=== PATIENT | male | born 1960 | race Caucasian/White ===

== ENCOUNTER 2021-03-28 15:31 | Inpatient (IN) | payer MEDICARE, OTHER ==
[~2021-03-28] VITALS: Ht 185.4 cm; Wt 169.2 kg
[~2021-03-28 15:31] MED LIST: ABILIFY10 MG PO; ABILIFY5 MG PO; ALBUTEROL0.09 MG/A2 IH; ALLERGY10 MG PO; AMOXICILLIN500 MG PO; ANTIVERT/2525 MG PO; ATIVAN1 MG PO; AUGMENTIN 875 M1 TAB PO; BACTRIM DS 8001 TA1 PO; BACTROBAN2% TP; BENZTROPINE MESY1 MG PO; BIAXIN500 MG PO; BRIN10TA PO; CEPHALEXIN250 MG PO; CIPRODEX 0.3%-7.5 ML OT; CLARITIN10 MG PO; COGENTIN1 MG PO; COREG12.5 MG PO; COREG25 MG PO; COREG6.25 MG PO; DILTIAZEM 24HR120 MG PO; DOXYCYCLINE MO100 MG PO; Duoneb 3ML 3 MG/3 ML INH; EFFEXOR XR150 MG PO; EFFEXOR-XR150 MG PO; EFFEXOR75 MG PO; ELIQUIS5 M1 PO; ESIDREX,ORETIC,25 MG PO; ETODOLAC400 MG PO; FLEET ADULT ENEM1 EA PO; GABAPENTIN100 M2 PO; HYDR25T PO; HYDROCHLOROTHIA25 M1 PO; HYDROCHLOROTHIA25 MG PO; IMDUR120 MG PO; K-1010 MEQ PO; KLONOPIN2 MG PO; KLOR-CON M2020 MEQ PO; LAMICTAL25 MG PO; LASIX 40MG40 MG/4 ML IV; LASIX40 MG PO; LATU40TA PO; LEVAQUIN750 MG PO; LISINOPRIL5 MG PO; LODINE400 MG PO; LOMOTIL 0.025 M1 TAB PO; LORAZEPAM1 MG PO; MEDROL DOSEPAK4 MG PO; MIRTAZAPINE15 M2 PO; MOTRIN800 MG PO; MUCINEX DM 30/61 TAB PO; NASONEX0.05 MG/AC NAS; NASONEX0.05 MG/AC NS; NEURONTIN100 MG PO; NORCO 325 MG-51 TAB PO; NORVASC10 MG PO; PERPHENAZINE8 MG PO; PREDNICOT20 MG PO; PREDNISONE10 MG PO; PROAIR HFA0.09 MG/AC IH; PROVENTIL0.09 MG/A1 INH; PROVENTIL0.09 MG/AC IH; QUETIAPINE FUM100 M3 PO; QUETIAPINE FUM300 M1 PO; SEROQUEL300 MG PO; TRAMADOL HCL50 MG PO; TRAZADONE HYDR100 MG PO; TRAZODONE100 MG PO; ULTRAM50 MG PO; VENLAFAXINE HYD75 M3 PO; VIBRAMYCIN100 MG PO; VICODIN 5/500 505 MG PO; VICODIN1 TAB PO; VISTARIL50 MG PO; VITAMIN D50000 I3 PO; ZITHROMAX Z PA250 MG PO; ZYRTEC10 MG PO; [UNRECOGNIZED DRUG - REMARK]
[2021-03-28] MEDS ORDERED: ALLEGRA ALLERG180 M2 PO (15:51)
[2021-03-28] MEDS ORDERED: VISTARIL50 MG PO (15:53)
[2021-03-28] MEDS ORDERED: FLONASE ALLERG9.9 ML NAS (15:55)
[2021-03-28] MEDS ORDERED: LASIX40 MG PO (15:55)
[2021-03-28] MEDS ORDERED: PROBIOTIC1 EAC2 PO (15:57)
[2021-03-28] MEDS ORDERED: MELATONIN10 M4 PO (15:58)
[2021-03-28] MEDS ORDERED: GLUCOPHAGE500 M1 PO (15:59)
[2021-03-28] MEDS ORDERED: PRILOSEC20 M1 PO (16:24)
[2021-03-28] MEDS ORDERED: REMERON15 M2 PO (16:24)
[2021-03-28] MEDS ORDERED: ALDACTONE25 M1 PO (16:25)
[2021-03-28] MEDS ORDERED: SEROQUEL50 MG PO (16:25)
[2021-03-28] MEDS ORDERED: VITAMIN D3125 MC1 PO (16:27)
[2021-03-28] MEDS ORDERED: 'CLONIDINE0.1 MG PO (16:31)
[2021-03-28] MEDS ORDERED: DIGOX250 MCG PO (16:34)
[2021-03-28] MEDS ORDERED: DULCOLAX STOOL100 M1 PO (16:35)
[2021-03-28] MEDS ORDERED: ELIQUIS5 M1 PO (16:36)
[2021-03-28] MEDS ORDERED: MYLANTA MAXIMU355 M1 PO (16:41)
[2021-03-28] MEDS ORDERED: HYDROCODONE-AC1 EAC1 PO (16:42)
[2021-03-28] MEDS ORDERED: Motrin,Rufen800 MG PO (16:43)
[2021-03-28 19:25] VITALS: BP 136/74
[2021-03-28 20:00] VITALS: BP 136/74
[2021-03-29 01:42] LABS: BILIRUBIN Negative (Negative); BLOOD Negative (Negative); CLARITY Clear (Clear); COLOR Yellow (Yellow); GLUCOSE Negative (Negative); KETONE Negative (Negative); LEUKO ESTERASE Negative (Negative); NITRITE Negative (Negative); SPECIFIC GRAVITY <= 1.005 (1.001-1.030)
[2021-03-29 02:22] LABS: RBC 0-2 rbc/hpf (0-2); WBC 0-2 wbc/hpf (0-5)
[2021-03-29 06:24] LABS: BASO # 0.1 10*3/uL (0.0-0.1); BASO % 0.6 % (0.0-1.0); EOS # 0.3 10*3/uL (0.0-0.4); EOS % 2.5 % (1.0-4.0); LYMPH # 2.3 10*3/uL (1.3-4.4); LYMPH % 22.5 % (27.0-41.0); MEAN CELL VOLUME 89.6 fl (80.0-94.0); MEAN CORPUSCULAR HGB 28.7 pg (27.0-31.0); MEAN PLATELET VOLUME 10.2 fl (9.6-12.3); MONO # 0.6 10*3/uL (0.1-1.0); MONO % 5.8 % (3.0-9.0); NEUT % 67.7 % (47.0-73.0); PLATELET COUNT AUTOMATED 296 10*3/uL (130-400); RED BLOOD COUNT 5.02 10*6/uL (4.50-5.90); RED CELL DISTRI WIDTH 14.5 % (0-14.5); WHITE BLOOD COUNT 10.3 10*3/uL (4.8-10.8)
[2021-03-29 06:36] LABS: ALBUMIN 2.8 gm/dl (3.1-4.5); BUN 10 mg/dl (7-24); CHLORIDE 104 mmol/L (98-107); CHOLESTEROL 150 mg/dL (<200); CREATININE 0.65 mg/dL (0.70-1.30); LDL CHOLESTEROL 83 mg/dL (9-159); POTASSIUM 3.8 mmol/L (3.5-5.1); SGOT/AST 10 IU/L (3-35); SGPT/ALT 13 U/L (12-78); SODIUM 140 mmol/L (136-145); TOTAL PROTEIN 7.1 gm/dL (6.4-8.2); TRIGLYCERIDES 107 mg/dl (<150)
[2021-03-29 06:44] LABS: ALKALINE PHOSPHATASE 94 U/L (45-117)
[2021-03-29 07:26] VITALS: BP 127/74
[2021-03-29 19:49] VITALS: BP 137/62
[2021-03-30 07:47] VITALS: BP 128/76
[2021-03-30 20:00] VITALS: BP 138/64
[2021-03-31 07:28] VITALS: BP 120/73
[2021-03-31 20:00] VITALS: BP 142/67
[2021-04-01 07:39] VITALS: BP 130/78
[2021-04-01 20:00] VITALS: BP 124/80
[2021-04-02 07:43] VITALS: BP 134/84
[2021-04-02 20:00] VITALS: BP 128/56
[2021-04-03 07:44] VITALS: BP 141/76
[2021-04-03] MEDS ORDERED: ROZEREM8 MG PO (09:25)
[2021-04-03] MEDS ORDERED: LATU40TA PO (09:25)
== END 2021-04-03 15:44 | DRG 885 ==
LOC: 3N 15:31
PROVIDERS: ADMIT Psychiatry & Neurology Psychiatry; ATTEND Psychiatry & Neurology Psychiatry
DX: F25.0 Schizoaffective disorder, bipolar type (principal); I11.0 Hypertensive heart disease with heart failure; Z68.42 Body mass index [BMI] 45.0-49.9, adult; I50.9 Heart failure, unspecified; I48.91 Unspecified atrial fibrillation; Z20.822 Contact with and (suspected) exposure to COVID-19; J45.909 Unspecified asthma, uncomplicated; M19.90 Unspecified osteoarthritis, unspecified site; E11.69 Type 2 diabetes mellitus with other specified complication; J44.9 Chronic obstructive pulmonary disease, unspecified; I25.10 Atherosclerotic heart disease of native coronary artery without angina pectoris; Z86.79 Personal history of other diseases of the circulatory system; Z82.49 Family history of ischemic heart disease and other diseases of the circulatory system; Z88.8 Allergy status to other drugs, medicaments and biological substances

== ENCOUNTER 2021-11-07 10:00 | Inpatient (IN) | payer MEDICARE, OTHER ==
[~2021-11-07] VITALS: Ht 182.9 cm; Wt 158.8 kg
[~2021-11-07 10:00] MED LIST changes: +'CLONIDINE0.1 MG PO; +ALDACTONE25 M1 PO; +ALLEGRA ALLERG180 M2 PO; +ATIVAN2 MG/1 ML IM; +CARVEDILOL25 MG PO; +DEPAKOTE250 MG PO; +DIGOX250 MCG PO; +DULCOLAX STOOL100 M1 PO; +FLONASE ALLERG9.9 ML NAS; +GEODON20 MG/1 ML IM; +GLUCOPHAGE500 M1 PO; +HYDROCODONE-AC1 EAC1 PO; +LITHOBID300 M1 PO; +MELATONIN10 M2 PO; +MELATONIN10 M4 PO; +METRONIDAZOLE45 G1 T; +MYLANTA MAXIMU355 M1 PO; +Motrin,Rufen800 MG PO; +NYSTATIN1 EAC3 MC; +PRILOSEC20 M1 PO; +PROBIOTIC1 EAC2 PO; +REMERON15 M2 PO; +ROZEREM8 MG PO; +SEROQUEL50 MG PO; +TYLENOL325 M2 PO; +VENTOLIN 02.5 MG/3 M INH; +VITAMIN D3125 MC1 PO; +VITAMIN E180 M1 PO; +[UNRECOGNIZED DRUG - OTHER] PO
[2021-11-07 16:53] VITALS: BP 102/72
[2021-11-07 20:00] VITALS: BP 103/68
[2021-11-08 08:13] VITALS: BP 110/60
[2021-11-08 20:00] VITALS: BP 111/60
[2021-11-09 08:00] VITALS: BP 100/64
[2021-11-09 20:00] VITALS: BP 116/58
[2021-11-10 08:00] VITALS: BP 106/66
[2021-11-10 20:00] VITALS: BP 116/69
[2021-11-11 07:40] VITALS: BP 125/77
[2021-11-11 20:00] VITALS: BP 100/55
[2021-11-12 07:48] VITALS: BP 113/61
[2021-11-12 20:00] VITALS: BP 103/54
[2021-11-13 07:54] VITALS: BP 101/62
[2021-11-13 10:58] LABS: BASO # 0.1 10*3/uL (0.0-0.1); BASO % 0.7 % (0.0-1.0); EOS # 0.6 10*3/uL (0.0-0.4); EOS % 6.3 % (1.0-4.0); HEMATOCRIT 45.2 % (42.0-52.0); LYMPH # 2.6 10*3/uL (1.3-4.4); MEAN CORPUSCULAR HGB 29.6 pg (27.0-31.0); MEAN CORPUSCULAR HGB CONC 31.9 g/dl (33.0-37.0); MEAN PLATELET VOLUME 10.5 fl (9.6-12.3); MONO # 0.7 10*3/uL (0.1-1.0); MONO % 7.4 % (3.0-9.0); NEUT # 5.1 10*3/uL (2.3-7.9); NEUT % 56.4 % (47.0-73.0); PLATELET COUNT AUTOMATED 299 10*3/uL (130-400); RED BLOOD COUNT 4.86 10*6/uL (4.50-5.90); RED CELL DISTRI WIDTH 13.8 % (0-14.5); WHITE BLOOD COUNT 8.9 10*3/uL (4.8-10.8)
[2021-11-13 11:15] LABS: CHLORIDE 103 mmol/L (98-107); POTASSIUM 3.8 mmol/L (3.5-5.1); SODIUM 137 mmol/L (136-145)
[2021-11-13 11:49] LABS: ALBUMIN 2.8 gm/dl (3.1-4.5); ALKALINE PHOSPHATASE 94 U/L (45-117); BUN 8 mg/dl (7-24); CREATININE 0.95 mg/dL (0.70-1.30); SGOT/AST 18 IU/L (3-35); SGPT/ALT 22 U/L (12-78); TOTAL PROTEIN 7.3 gm/dL (6.4-8.2)
[2021-11-13 20:00] VITALS: BP 116/58
[2021-11-14 08:12] VITALS: BP 107/59
[2021-11-14] MEDS ORDERED: ARIPIPRAZOLE15 MG PO (08:55)
[2021-11-14] MEDS ORDERED: VITAMIN D3125 MC1 PO (08:55)
[2021-11-14] MEDS ORDERED: LITHIUM CARBON450 M1 PO (08:55)
[2021-11-14] MEDS ORDERED: BENZTROPINE ME0.5 MG PO (08:55)
[2021-11-14] MEDS ORDERED: MELATONIN5 M7 PO (08:55)
[2021-11-14 20:00] VITALS: BP 96/57
[2021-11-15 08:00] VITALS: BP 110/75
[2021-11-15 20:00] VITALS: BP 104/54
[2021-11-16 08:00] VITALS: BP 103/56
[2021-11-16 20:00] VITALS: BP 101/48
[2021-11-17 08:00] VITALS: BP 113/60
[2021-11-17] MEDS ORDERED: LITHOBID300 M1 PO (15:56)
== END 2021-11-17 17:25 | DRG 885 ==
LOC: 3N 10:00
PROVIDERS: Counselor Professional; ADMIT Psychiatry & Neurology Psychiatry; ATTEND Psychiatry & Neurology Psychiatry
DX: F25.0 Schizoaffective disorder, bipolar type (principal); I11.0 Hypertensive heart disease with heart failure; E44.1 Mild protein-calorie malnutrition; Z68.42 Body mass index [BMI] 45.0-49.9, adult; E87.6 Hypokalemia; I48.91 Unspecified atrial fibrillation; R73.9 Hyperglycemia, unspecified; F32.A Depression, unspecified; I50.9 Heart failure, unspecified; F41.9 Anxiety disorder, unspecified; J45.909 Unspecified asthma, uncomplicated; J44.9 Chronic obstructive pulmonary disease, unspecified; I25.10 Atherosclerotic heart disease of native coronary artery without angina pectoris

== ENCOUNTER 2023-06-02 15:26 | Emergency (ER) | payer MEDICARE, OTHER ==
[~2023-06-02 15:26] MED LIST changes: +ARIPIPRAZOLE15 MG PO; +BENZTROPINE ME0.5 MG PO; +LITHIUM CARBON450 M1 PO; +MELATONIN5 M7 PO
[2023-06-02 16:01] LABS: BASO # 0.1 10*3/uL (0.0-0.1); BASO % 0.6 % (0.0-1.0); EOS # 0.2 10*3/uL (0.0-0.4); EOS % 1.5 % (1.0-4.0); HEMATOCRIT 43.2 % (42.0-52.0); LYMPH # 2.5 10*3/uL (1.3-4.4); MEAN CELL VOLUME 86.6 fl (80.0-94.0); MEAN CORPUSCULAR HGB 27.7 pg (27.0-31.0); MEAN CORPUSCULAR HGB CONC 31.9 g/dl (33.0-37.0); MEAN PLATELET VOLUME 9.7 fl (9.6-12.3); MONO # 0.8 10*3/uL (0.1-1.0); NEUT # 10.1 10*3/uL (2.3-7.9); NEUT % 73.2 % (47.0-73.0); PLATELET COUNT AUTOMATED 258 10*3/uL (130-400); RED BLOOD COUNT 4.99 10*6/uL (4.50-5.90); RED CELL DISTRI WIDTH 14.5 % (0-14.5); WHITE BLOOD COUNT 13.8 10*3/uL (4.8-10.8)
[2023-06-02 16:16] LABS: BILIRUBIN Negative (Negative); BLOOD Negative (Negative); CLARITY Clear (Clear); COLOR Yellow (Yellow); GLUCOSE Negative (Negative); KETONE Negative (Negative); LEUKO ESTERASE Negative (Negative); NITRITE Negative (Negative); SPECIFIC GRAVITY <= 1.005 (1.001-1.030); UROBILINOGEN 0.2 E.U./dl (0.0-1.0)
[2023-06-02 16:25] LABS: URINE AMPHETAMINES Negative (1000ng/ml); URINE BARBITURATES Negative (200ng/ml); URINE BENZODIAZEPINES Negative (200ng/ml); URINE CANNABINOIDS (THC) Negative (50ng/ml); URINE COCAINE Negative (300ng/ml); URINE METHADONE Negative (300ng/ml); URINE OPIATES Negative (300ng/ml); URINE PHENCYCLIDINE Negative (25ng/ml)
[2023-06-02 16:27] LABS: ALKALINE PHOSPHATASE 105 U/L (46-116); BUN 12 mg/dl (9-23); CHLORIDE 103 mmol/L (98-107); POTASSIUM 3.5 mmol/L (3.4-5.1); SGPT/ALT 11 U/L (10-49); TOTAL PROTEIN 6.8 gm/dL (6.0-8.0)
[2023-06-02 16:29] LABS: BACTERIA TRACE; EPITHELIAL CELLS 0-2
[2023-06-02 16:30] LABS: ETHYL ALCOHOL < 3.0 mg/dl (<3)
[2023-06-02] MEDS ORDERED: INVEGA6 MG PO (18:30)
== END 2023-06-02 23:38 | disposition home or self-care (01) ==
LOC: ED 15:26
PROVIDERS: Emergency Medicine
DX: F25.9 Schizoaffective disorder, unspecified (principal); F31.9 Bipolar disorder, unspecified; I48.91 Unspecified atrial fibrillation; J44.9 Chronic obstructive pulmonary disease, unspecified; I11.0 Hypertensive heart disease with heart failure; I50.9 Heart failure, unspecified; F41.9 Anxiety disorder, unspecified; M19.90 Unspecified osteoarthritis, unspecified site; Z88.8 Allergy status to other drugs, medicaments and biological substances; Z98.890 Other specified postprocedural states; Z95.5 Presence of coronary angioplasty implant and graft; Z79.899 Other long term (current) drug therapy; Z20.822 Contact with and (suspected) exposure to COVID-19

== ENCOUNTER 2023-10-06 10:58 | Emergency (ER) | payer MEDICARE, OTHER ==
[~2023-10-06] VITALS: Wt 156.0 kg
[~2023-10-06 10:58] MED LIST changes: +INVEGA6 MG PO; +LITHIUM CARB300 MG PO; +PALIPERIDONE ER6 MG PO; +PERCOCET 5-3251 EACH PO; +TYLENOL EXTRA500 MG PO
[2023-10-06] MEDS ORDERED: ACCUNEB 0.1.25 MG/1 INH (11:25)
[2023-10-06] MEDS ORDERED: CARVEDILOL25 MG PO (11:26)
[2023-10-06] MEDS ORDERED: ELIQUIS5 M1 PO (11:26)
[2023-10-06] MEDS ORDERED: CEFDINIR300 MG PO (11:26)
[2023-10-06 11:27] LABS: BASO % 0.6 % (0.0-1.0); EOS # 0.2 10*3/uL (0.0-0.4); EOS % 3.2 % (1.0-4.0); HEMATOCRIT 38.9 % (42.0-52.0); LYMPH # 1.9 10*3/uL (1.3-4.4); LYMPH % 28.3 % (27.0-41.0); MEAN CELL VOLUME 95.6 fl (80.0-94.0); MEAN CORPUSCULAR HGB 28.3 pg (27.0-31.0); MEAN CORPUSCULAR HGB CONC 29.6 g/dl (33.0-37.0); MEAN PLATELET VOLUME 11.3 fl (9.6-12.3); MONO # 0.6 10*3/uL (0.1-1.0); MONO % 8.9 % (3.0-9.0); NEUT # 3.8 10*3/uL (2.3-7.9); NEUT % 56.9 % (47.0-73.0); PLATELET COUNT AUTOMATED 153 10*3/uL (130-400); RED BLOOD COUNT 4.07 10*6/uL (4.50-5.90); WHITE BLOOD COUNT 6.6 10*3/uL (4.8-10.8)
[2023-10-06] MEDS ORDERED: DIGOXIN250 MCG PO (11:27)
[2023-10-06] MEDS ORDERED: 24 HOUR ALLERG9.9 ML INH (11:28)
[2023-10-06] MEDS ORDERED: GOOD SENSE ACID20 MG PO (11:28)
[2023-10-06] MEDS ORDERED: Depakote500 MG PO (11:28)
[2023-10-06] MEDS ORDERED: LITHIUM CARBON300 M1 PO (11:30)
[2023-10-06] MEDS ORDERED: LASIX40 MG PO (11:30)
[2023-10-06] MEDS ORDERED: HYDROXYZINE PAM50 MG PO (11:30)
[2023-10-06] MEDS ORDERED: GLUMETZA500 MG PO (11:31)
[2023-10-06] MEDS ORDERED: CLARITIN10 MG PO (11:31)
[2023-10-06] MEDS ORDERED: MELATONIN10 M4 PO (11:31)
[2023-10-06] MEDS ORDERED: TRAZODONE50 MG PO (11:32)
[2023-10-06] MEDS ORDERED: TRAMADOL HCL50 MG PO (11:32)
[2023-10-06] MEDS ORDERED: METROLOTION 5959 ML T (11:32)
[2023-10-06 11:51] LABS: ALKALINE PHOSPHATASE 62 U/L (46-116); BUN 6 mg/dl (9-23); CHLORIDE 103 mmol/L (98-107); POTASSIUM 3.8 mmol/L (3.4-5.1); SGPT/ALT 12 U/L (5-49); TOTAL PROTEIN 6.9 gm/dL (6.0-8.0)
[2023-10-06 11:57] LABS: ETHYL ALCOHOL < 3.0 mg/dl (<3)
[2023-10-06 12:09] LABS: BILIRUBIN Negative (Negative); BLOOD Negative (Negative); CLARITY Clear (Clear); COLOR Yellow (Yellow); GLUCOSE Negative (Negative); KETONE Negative (Negative); LEUKO ESTERASE Negative (Negative); NITRITE Negative (Negative); PH 7.5 (4.5-8.0); SPECIFIC GRAVITY <= 1.005 (1.001-1.030); UROBILINOGEN 0.2 E.U./dl (0.0-1.0)
[2023-10-06 12:16] LABS: RBC 0-2 rbc/hpf (0-2); URINE AMPHETAMINES Negative (1000ng/ml); URINE BARBITURATES Negative (200ng/ml); URINE BENZODIAZEPINES Negative (200ng/ml); URINE CANNABINOIDS (THC) Negative (50ng/ml); URINE COCAINE Negative (300ng/ml); URINE METHADONE Negative (300ng/ml); URINE OPIATES Negative (300ng/ml); URINE PHENCYCLIDINE Negative (25ng/ml); WBC 0-2 wbc/hpf (0-5)
== END 2023-10-06 13:33 | disposition home or self-care (01) ==
LOC: ED 10:58
PROVIDERS: Emergency Medicine
DX: F31.9 Bipolar disorder, unspecified (principal); R45.1 Restlessness and agitation; J44.9 Chronic obstructive pulmonary disease, unspecified; F41.9 Anxiety disorder, unspecified; I11.0 Hypertensive heart disease with heart failure; I50.9 Heart failure, unspecified; M19.90 Unspecified osteoarthritis, unspecified site; I48.91 Unspecified atrial fibrillation; E11.9 Type 2 diabetes mellitus without complications; Z98.890 Other specified postprocedural states; Z95.5 Presence of coronary angioplasty implant and graft; Z79.899 Other long term (current) drug therapy; Z20.822 Contact with and (suspected) exposure to COVID-19